=== PATIENT | female | born 1960 | race Caucasian/White ===

== ENCOUNTER 2023-11-26 21:49 | Emergency (ER) | payer SELFPAY ==
[2023-11-26] VITALS (22 sets, daily range): BP systolic 92–237; BP diastolic 57–129; PULSE 66–114; RESP 7–22; TEMP 36.8; O2SAT 93–100; BMI 20.5
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
[2023-11-26 22:05] LABS: Basophils # 0.1 K/mm3 (0-0.2); Basophils % 0.8 % (0.1-2.0); Eosinophils # 0.2 K/mm3 (0.0-0.4); Eosinophils % 1.4 % (0.1-12.0); Hematocrit 39.8 % (37.0-47.0); Hemoglobin 12.6 g/dL (12.2-16.2); Lymphocytes # 2.4 K/mm3 (0.7-4.5); Lymphocytes % 18.5 % (10-50); Mean Corpuscular HGB Conc 31.7 g/dL (31.8-35.4); Mean Corpuscular Hemoglobin 32.9 pg (27.0-31.2); Mean Corpuscular Volume 103.7 fl (81-99); Mean Platelet Volume 7.7 fl (7.4-10.4); Monocytes # 0.9 K/mm3 (0.1-1.0); Monocytes % 6.8 % (1.7-9.3); Neutrophils # 9.5 K/mm3 (1.8-7.8); Neutrophils % 72.4 % (37.0-80.0); Platelet Count 375 K/mm3 (142-424); Red Blood Count 3.84 M/mm3 (4.20-5.40); Red Cell Distribution Width 13.3 % (11.5-17.5); White Blood Count 13.1 K/mm3 (4.8-10.8)
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
[2023-11-26 22:14] LABS: Alanine Aminotransferase 24 U/L (12-78); Albumin Level 4.6 g/dl (3.5-5.0); Albumin/Globulin Ratio 1.2 (1.1-1.8); Alkaline Phosphatase 96 U/L (38-126); Anion Gap 11.7 mEq/L (5-15); Aspartate Amino Transferase 51 U/L (14-36); Bilirubin,Total 0.5 mg/dl (0.2-1.3); Blood Urea Nitrogen 19 mg/dl (7-17); Calcium 9.3 mg/dl (8.4-10.2); Carbon Dioxide 24 mmol/L (22.0-30.0); Chloride 105 mmol/L (98-107); Creatinine Clearance Estimated 21 mL/min (50-200); Estimated Glomerular Filt Rate 24 ml/min (>60); GFR (African American) 29 ML/MIN (>60); Globulin 3.9 g/dL (1.3-3.2); Glucose 124 mg/dl (74-100); Potassium 3.7 mmoL/L (3.5-5.1); Sodium 137 mmol/L (136-145); Total Protein,Serum 8.5 g/dl (6.3-8.2)
[2023-11-26 22:15] LABS: Activated Partial Thrombo Time 28.8 seconds (22.8-30.6); INR 0.91 (0.9-1.1); Prothrombin Time 10.3 seconds (10.1-12.5)
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
[2023-11-26 22:33] LABS: Ethyl Alcohol < 10 mg/dl (0-10)
[2023-11-26 22:43] LABS: Creatine Kinase 833 U/L (30-135)
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
--- NOTE | 2023-11-26 23:20 | XR_ITS ---
PROCEDURE INFORMATION: Exam: XR Chest Exam date and time: 11/26/2023 11:24 PM Age: 63 years old Clinical indication: Device placement; Ett placement (vent status); Additional info: Post intubation TECHNIQUE: Imaging protocol: Radiologic exam of the chest. Views: 1 view. COMPARISON: 1. CT ANGIO CHEST 11/26/2023 10:58 PM 2. CR XR CHEST PORTABLE 11/26/2023 10:05 PM FINDINGS: Tubes, catheters and devices: Interval placement of a ETT 3 cm above the enid. NG tube has been placed with the tip extending off of the film into the more distal stomach. Lungs: Unremarkable. No consolidation. Pleural spaces: Unremarkable. No pleural effusion. No pneumothorax. Heart/Mediastinum: Unremarkable. No cardiomegaly. Bones/joints: Unremarkable. IMPRESSION: Tube placement as above. Otherwise stable chest with no acute cardiopulmonary disease.
[2023-11-26 23:22] LABS: Microscopic, Urine URINE MICROSCOPIC (MICROSCOPIC)
--- NOTE | 2023-11-26 23:23 | PC.NURSE ---
[place] [facility] contacted, awaiting return call from [facility]
[2023-11-26 23:24] LABS: Appearance,Urine CLEAR (Clear); Bilirubin,Urine Negative (Negative); Blood, Urine 1+ (Negative); Color,Urine YELLOW (Yellow); Glucose,Urine (UA) Negative (Negative); Ketones,Urine Negative (Negative); Leukocyte Esterase,Urine Negative (Negative); Nitrate,Urine Negative (Negative); Protein,Urine 1+ (Negative); Urobilinogen,Urine 0.2 EU/dl (0.2)
--- NOTE | 2023-11-26 23:26 | PC.NURSE ---
[place] [facility] accepted transport, 22 min ETA. Main notified to block traffic
[2023-11-26 23:34] LABS: Barbiturates Screen,Urine Negative ng/ml (<200)
[2023-11-26 23:35] LABS: Amphetamine/Metha Screen,Urine Negative ng/ml (<1000); Benzodiazepines Screen,Urine Negative ng/ml (<200)
[2023-11-26 23:36] LABS: Cannabinoid Screen,Urine Positive ng/ml (<50)
[2023-11-26 23:37] LABS: Cocaine Screen,Urine Positive ng/ml (<300); Methadone Screen,Urine Negative ng/ml (<300)
[2023-11-26 23:38] LABS: Opiate Screen,Urine Positive ng/ml (<300)
[2023-11-26 23:39] LABS: Phencyclidine Screen,Urine Negative ng/ml (<25)
--- NOTE | 2023-11-26 23:54 | PC.NURSE ---
Report called to MICHELLE Rojo @[facility].
[2023-11-27 00:01] VITALS: BP 147/64; PULSE 73; RESP 8; TEMP 37.1; O2SAT 98
--- NOTE | 2023-11-27 00:08 | PC.NURSE ---
500cc emptied from [facility] cath
[2023-11-27 00:17] VITALS: O2SAT 100
== END 2023-11-27 00:13 | disposition critical access hospital (66) ==
LOC: ER 23:59
PROVIDERS: Emergency Provider Emergency Medicine
DX: J96.01 Acute respiratory failure with hypoxia (principal); M62.82 Rhabdomyolysis; S00.03XA Contusion of scalp, initial encounter; I95.9 Hypotension, unspecified; N17.9 Acute kidney failure, unspecified; F11.929 Opioid use, unspecified with intoxication, unspecified; F15.929 Other stimulant use, unspecified with intoxication, unspecified; R41.82 Altered mental status, unspecified; F17.210 Nicotine dependence, cigarettes, uncomplicated; V68.5XXA Driver of heavy transport vehicle injured in noncollision transport accident in traffic accident, initial encounter; Y92.410 Unspecified street and highway as the place of occurrence of the external cause; Z23 Encounter for immunization
CPT/HCPCS: 31500; 51702; 70450; 70496; 70498; 71045; 71275; 72125; 72128; 72131; 72170; 72192; 73030; 73060; 73090; 73100; 73552; 73562; 73590; 74174; 80053; 80307; 80320; 81001; 82550; 85025; 85610; 85730; 90471; 96361; 96365; 96375; 99291; G0480; J0131; J1885; J2060; J2704; J7120; Q9967

== ENCOUNTER 2023-12-10 12:34 | Emergency (ER) | payer SELFPAY ==
[2023-12-10 12:35] VITALS: BP 108/81; PULSE 111; RESP 16; TEMP 36.8; O2SAT 98; BMI 20.3
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
[2023-12-10 14:17] VITALS: BP 108/81; PULSE 111; RESP 16; TEMP 36.8; O2SAT 98
== END 2023-12-10 14:19 | disposition home or self-care (01) ==
PROVIDERS: Emergency Provider Nurse Practitioner
DX: S80.12XA Contusion of left lower leg, initial encounter (principal); V49.9XXA Car occupant (driver) (passenger) injured in unspecified traffic accident, initial encounter
CPT/HCPCS: 73010; 73562; 73590; 93971; 99204; 99212; G0463

== ENCOUNTER 2023-12-24 16:40 | Emergency (ER) | payer OTHER, SELFPAY ==
[2023-12-24 16:41] VITALS: BP 127/97; PULSE 118; RESP 18; O2SAT 99; BMI 20.5
--- NOTE | 2023-12-24 17:30 | CT_ITS ---
PROCEDURE INFORMATION: Exam: CT Head Without Contrast Exam date and time: 12/24/2023 5:49 PM Age: 63 years old Clinical indication: Altered mental status/memory loss and dizziness; Additional info: Dizziness, altered mental status TECHNIQUE: Imaging protocol: Computed tomography of the head without contrast. Radiation optimization: All CT scans at this facility use at least one of these dose optimization techniques: automated exposure control; mA and/or kV adjustment per patient size (includes targeted exams where dose is matched to clinical indication); or iterative reconstruction. COMPARISON: CT ANGIO HEAD 11/26/2023 10:55 PM FINDINGS: Brain: No hemorrhage. Unremarkable white matter. No mass effect. Cerebral ventricles: No ventriculomegaly. Paranasal sinuses: Visualized sinuses are unremarkable. No fluid levels. Mastoid air cells: Visualized mastoid air cells are well aerated. Bones: Unremarkable. No acute fracture. Soft tissues: Unremarkable. IMPRESSION: No acute intracranial findings.
[2023-12-24 17:31] VITALS: BP 141/80; O2SAT 98
--- NOTE | 2023-12-24 17:31 | XR_ITS ---
PROCEDURE INFORMATION: Exam: XR Chest Exam date and time: 12/24/2023 5:43 PM Age: 63 years old Clinical indication: Shortness of breath; Additional info: SOA TECHNIQUE: Imaging protocol: Radiologic exam of the chest. Views: 1 view. COMPARISON: CR XR CHEST PORTABLE 11/26/2023 11:24 PM FINDINGS: Lungs: No consolidation. Pleural spaces: No pleural effusion. No pneumothorax. Heart/Mediastinum: No cardiomegaly. Calcified mediastinal/left hilar lymph nodes. Bones/joints: Partially visualized right proximal humerus fixation hardware. IMPRESSION: No acute findings.
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
--- NOTE | 2023-12-24 17:44 | ECG_ITS ---
APPROVED REPORT Exam: Resting ECG HR:95 bpm ECG Measurements Heart Rate 95 AXES NM 141 P 78 QRSd 85 QRS 63 QT 343 T 85 QTc 396 Conclusion SINUS RHYTHM MINIMAL VOLTAGE CRITERIA FOR LVH, CONSIDER NORMAL VARIANT [MEETS CRITERIA IN ONE OF: R(aVL), S(V1), R(V5), R(V5/V6)+S(V1)] BORDERLINE ECG Electronically signed by : YOUNG WHALEN, 12/24/2023 23:38:02
[2023-12-24 18:00] VITALS: BP 139/95; PULSE 89; O2SAT 98
[2023-12-24 18:36] LABS: Basophils % 0.4 % (0.1-2.0); Eosinophils # 0.1 K/mm3 (0.0-0.4); Eosinophils % 1.5 % (0.1-12.0); Hemoglobin 11.3 g/dL (12.2-16.2); Lymphocytes # 0.7 K/mm3 (0.7-4.5); Lymphocytes % 7.8 % (10-50); Mean Corpuscular HGB Conc 31.5 g/dL (31.8-35.4); Mean Corpuscular Hemoglobin 32.9 pg (27.0-31.2); Mean Corpuscular Volume 104.7 fl (81-99); Monocytes # 0.3 K/mm3 (0.1-1.0); Monocytes % 2.9 % (1.7-9.3); Neutrophils # 8.2 K/mm3 (1.8-7.8); Neutrophils % 87.4 % (37.0-80.0); Platelet Count 260 K/mm3 (142-424); Red Blood Count 3.44 M/mm3 (4.20-5.40); Red Cell Distribution Width 13.9 % (11.5-17.5); White Blood Count 9.4 K/mm3 (4.8-10.8)
[2023-12-24 18:38] LABS: MANUAL DIFFERENTIAL MANUAL DIFFERENTIAL (MANUAL DIFF)
[2023-12-24 18:40] LABS: Microscopic, Urine URINE MICROSCOPIC (MICROSCOPIC)
[2023-12-24 18:47] LABS: Albumin Level 4.2 g/dl (3.5-5.0); Chloride 111 mmol/L (98-107); Potassium 3.6 mmoL/L (3.5-5.1); Sodium 138 mmol/L (136-145)
[2023-12-24 18:50] LABS: Alanine Aminotransferase 31 U/L (12-78); Albumin/Globulin Ratio 1.4 (1.1-1.8); Alkaline Phosphatase 111 U/L (38-126); Anion Gap 5.6 mEq/L (5-15); Aspartate Amino Transferase 53 U/L (14-36); Bilirubin,Total 0.5 mg/dl (0.2-1.3); Blood Urea Nitrogen 15 mg/dl (7-17); Calcium 9.2 mg/dl (8.4-10.2); Carbon Dioxide 25 mmol/L (22.0-30.0); Creatine Kinase 774 U/L (30-135); Creatinine Clearance Estimated 44 mL/min (50-200); Estimated Glomerular Filt Rate 85 ml/min (>60); GFR (African American) 103 ML/MIN (>60); Globulin 3.1 g/dL (1.3-3.2); Glucose 126 mg/dl (74-100); Total Protein,Serum 7.3 g/dl (6.3-8.2)
[2023-12-24 18:51] LABS: Lactic Acid 0.8 mmol/L (0.7-2.1); Magnesium 2.1 mg/dl (1.6-2.3)
[2023-12-24 19:21] LABS: Hypochromasia 1+; Lymphocytes % 9 % (10-50); Monocytes % 3 % (2-9); Neutrophils % 88 % (42-76); Stomatocytes 1+; Total Cells Counted 100
[2023-12-24 19:22] LABS: Microcytosis 1+; Platelet Estimate Normal
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
[2023-12-24 19:53] VITALS: BP 143/77; PULSE 76; RESP 16; TEMP 36.6; O2SAT 97
[2023-12-24 19:56] LABS: Appearance,Urine CLEAR (Clear); Blood, Urine TRACE-I (Negative); Color,Urine YELLOW (Yellow); Glucose,Urine (UA) Negative (Negative); Ketones,Urine TRACE (Negative); Leukocyte Esterase,Urine Negative (Negative); Nitrate,Urine Negative (Negative); PH,Urine 6.5 (5.0-8.5); Protein,Urine 1+ (Negative); Specific Gravity, Urine 1.025 (1.005-1.030)
[2023-12-24 20:04] LABS: Bilirubin,Urine Negative (Negative)
[2023-12-24 20:05] LABS: HIV (1&2) Antibody Rapid NONREACTIVE (NONREACTIVE)
[2023-12-24 20:08] LABS: Benzodiazepines Screen,Urine Negative ng/ml (<200)
[2023-12-24 20:09] LABS: Amphetamine/Metha Screen,Urine Negative ng/ml (<1000)
[2023-12-24 20:10] LABS: Barbiturates Screen,Urine Negative ng/ml (<200); Cannabinoid Screen,Urine Positive ng/ml (<50)
[2023-12-24 20:11] LABS: Bacteria,Urine Trace /lpf; Cocaine Screen,Urine Positive ng/ml (<300); Methadone Screen,Urine Negative ng/ml (<300)
[2023-12-24 20:12] LABS: Opiate Screen,Urine Positive ng/ml (<300)
[2023-12-24 20:13] LABS: Phencyclidine Screen,Urine Negative ng/ml (<25)
[2023-12-24 20:17] LABS: Ethyl Alcohol < 10 mg/dl (0-10)
== END 2023-12-24 19:55 | disposition left against medical advice (07) ==
PROVIDERS: Physician Assistant; Emergency Provider Emergency Medicine
DX: R11.2 Nausea with vomiting, unspecified (principal); R74.8 Abnormal levels of other serum enzymes; E87.8 Other disorders of electrolyte and fluid balance, not elsewhere classified; F14.90 Cocaine use, unspecified, uncomplicated; F11.90 Opioid use, unspecified, uncomplicated
CPT/HCPCS: 70450; 71045; 80053; 80307; 80320; 81001; 82550; 83605; 83735; 85007; 85025; 85027; 87389; 93005; 99284; G0480